=== PATIENT | female | born 1970 | race African-American/Black ===

== ENCOUNTER 2020-08-25 08:43 | Outpatient (CLI) | payer OTHER ==
[2020-08-25 11:37] LABS: #Basophils 0.1 thou/uL (0.0-0.2); #Eosinphils 0.3 thou/uL (0.0-0.7); #Lymphocytes 2.1 thou/uL (1.20-3.40); #Monocytes 0.4 thou/uL (0.11-0.59); #Neutrophils 3.5 thou/uL (1.40-6.50); %Basophils 0.8 % (0.0-1.0); %Eosinophils 4.7 % (0.0-10.0); %Neutrophils 54.6 % (42.0-75.0); Hemoglobin 12.7 g/dL (12.0-16.0); Mean Corpuscular HGB CONC 31.1 g/dL (32.0-36.0); Mean Corpuscular Hemoglobin 28.7 pg (27.0-31.0); Mean Corpuscular Volume 92.2 fL (78.0-98.0); Mean Platelet Volume 10.3 fL (7.4-10.4); Platelet Count 304 thou/uL (130-400); RBC Distribution Width 12.9 % (11.5-14.5); Red Blood Cell (RBC) Count 4.45 mill/uL (4.20-5.40); White Blood Cell (WBC) Count 6.4 thou/uL (4.8-10.8)
[2020-08-25 11:54] LABS: Anion Gap 10 mmol/L (10-20); BUN (Urea Nitrogen) 9 mg/dL (7.0-18.7); Calc. Creatinine Clearance 0 mL/min (70-130); Carbon Dioxide 27 mmol/L (22-29); Chloride 106 mmol/L (98-107); Potassium 4.3 mmol/L (3.5-5.1); Sodium 139 mmol/L (136-145)
[2020-08-25 11:55] LABS: ALT (SGPT) Less than 7 U/L (8-55); AST (SGOT) 10 U/L (5-34); Albumin 4.2 g/dL (3.5-5.0); Alkaline Phosphatase 80 U/L (40-110); Bilirubin, Total 0.8 mg/dL (0.2-1.2); Calcium 9.8 mg/dL (7.8-10.44); Cardiac Risk 3.4 (Less than 4.5); Cholesterol 151 mg/dl (< 200 Desired); Globulin 2.7 g/dL (2.4-3.5); Glucose 95 mg/dL (70-105); HDL Cholesterol 45 mg/dL (>60 Neg Risk); LDL Cholesterol, Calculated 78 mg/dL; Protein, Total 6.9 g/dL (6.0-8.3); Triglycerides 138 mg/dL (Less than 150)
[2020-08-25 12:18] LABS: Creatinine, Urine 196.5 mg/dL (47-110); Microalbumin Urine 1.6 mg/dL (0.5-50.0); Microalbumin/Creat Ratio 8.1 mg/g (Less than 30)
[2020-08-25 13:06] LABS: Bilirubin Negative (Negative); Blood, Urine Negative (Negative); Clarity Turbid (Clear); Glucose, Urine (Dipstick) Normal (Negative); Ketone, Urine Negative (Negative); Leukocyte 25 Leu/uL (Negative); Nitrite Negative (Negative); Protein, Urine (Dipstick) 10 mg/dL (Neg-Trace); RBC/HPF 0-3 HPF (0-3); Specific Gravity, Urine 1.019 (1.002-1.036); Urobilinogen Normal mg/dL (Less than 2); pH, Urine 5.5 (5.0-9.0)
[2020-08-25 13:10] LABS: Bacteria/HPF Rare-Few HPF (None Seen)
== END 2020-08-25 08:44 | disposition home or self-care (01) ==
LOC: SCSRAD 08:43
PROVIDERS: ATTEND Family Medicine
DX: Z00.00 Encounter for general adult medical examination without abnormal findings (principal); M25.551 Pain in right hip; M25.552 Pain in left hip; E11.9 Type 2 diabetes mellitus without complications; M16.0 Bilateral primary osteoarthritis of hip
CPT/HCPCS: 36415; 80053; 80061; 81001; 82043; 83036; 84443; 85025

== ENCOUNTER 2021-01-31 07:35 | Outpatient (CLI) | payer OTHER | END 2021-01-31 07:36 | disposition home or self-care (01) | LOC: SCSMRI 07:35 | PROVIDERS: ATTEND Family Medicine | DX: M50.80 Other cervical disc disorders, unspecified cervical region (principal); M51.26 Other intervertebral disc displacement, lumbar region; M47.812 Spondylosis without myelopathy or radiculopathy, cervical region; M47.818 Spondylosis without myelopathy or radiculopathy, sacral and sacrococcygeal region; M47.816 Spondylosis without myelopathy or radiculopathy, lumbar region | CPT/HCPCS: 72141; 72148 ==

== ENCOUNTER 2021-02-02 15:40 | Emergency (ER) | payer OTHER | END 2021-02-02 17:14 | disposition home or self-care (01) | LOC: ERS 15:40 | DX: M25.512 Pain in left shoulder (principal); M79.662 Pain in left lower leg; I10 Essential (primary) hypertension; E11.9 Type 2 diabetes mellitus without complications; M19.90 Unspecified osteoarthritis, unspecified site; Z79.899 Other long term (current) drug therapy ==